=== PATIENT | female | born 1960 | race Caucasian/White ===

== ENCOUNTER → 2018-11-23 | Outpatient (CLI) | payer BC ==
--- NOTE | 2018-11-25 16:10 | SLEEPHOME ---
DATE OF PROCEDURE: 11/23/2018 ORDERED BY: DRAKE Grossman Diagnostic home sleep testing was performed due to concern for the obstructive sleep apnea syndrome in this patient with a history of excessive somnolence, morning headaches and nonrestorative sleep. For testing a nocturnal T3 respiratory monitoring device was used. Continuous record was made of pulse, oxygen saturation, airflow, chest, abdominal strain and body position. 9 hours and 59 minutes of data were reviewed. There were 5 hours and 38 minutes marked as time in bed. During the interval marked time in bed, there were 73 respiratory events identified of 10 seconds in duration or greater for a respiratory event index of 12.9. The events were obstructive. Baseline pulse rate 78, pulse rate ranged 61-99. Baseline saturation 93%, saturations fell to 82%. Testing was performed in both the supine and nonsupine positions. IMPRESSION: Abnormal home sleep testing with repetitive respiratory events and oxygen desaturations to 82% with a respiratory event index of 12.9 is consistent with the obstructive sleep apnea syndrome. RECOMMENDATIONS: The patient should be encouraged to undergo a formal sleep evaluation.
== END ==
LOC: M SLEEP HO 12:53
PROVIDERS: ATTEND Nurse Practitioner Adult Health
DX: R40.0 Somnolence (principal)

== ENCOUNTER → 2020-11-16 | Outpatient (REF) | payer BC ==
[2020-11-16 18:11] LABS: C REACTIVE PROTEIN QUANTITATIV 1.27 MG/DL (0.00-0.30); URIC ACID 5.3 MG/DL (2.6-6.0)
[2020-11-16 18:25] LABS: TOTAL 25(OH) VITAMIN D 30.2 NG/ML (30.0-100.0)
== END ==
LOC: M SFHCRHEU 11:31
PROVIDERS: ATTEND Internal Medicine
DX: M79.89 Other specified soft tissue disorders (principal); E55.9 Vitamin D deficiency, unspecified

== ENCOUNTER 2021-07-24 13:22 | Emergency (ER) | payer BC ==
[~2021-07-24] VITALS: Ht 157.5 cm; Wt 113.6 kg
[2021-07-24] MEDS ORDERED: SYNT100T (13:30)
[2021-07-24] MEDS ORDERED: HYDR12.55 (13:30)
[2021-07-24] MEDS ORDERED: LOSA25TA13 (13:30)
[2021-07-24 16:20] VITALS: BP 160/90
== END 2021-07-24 16:18 | disposition home or self-care (01) ==
LOC: M ED 13:22
DX: S89.92XA Unspecified injury of left lower leg, initial encounter (principal); X50.9XXA Other and unspecified overexertion or strenuous movements or postures, initial encounter; Y92.018 Other place in single-family (private) house as the place of occurrence of the external cause; I10 Essential (primary) hypertension; E03.9 Hypothyroidism, unspecified; E66.9 Obesity, unspecified; G47.33 Obstructive sleep apnea (adult) (pediatric); M19.90 Unspecified osteoarthritis, unspecified site; Z79.899 Other long term (current) drug therapy; Z79.890 Hormone replacement therapy; Z88.1 Allergy status to other antibiotic agents; Z88.2 Allergy status to sulfonamides; Z88.5 Allergy status to narcotic agent

== ENCOUNTER 2024-05-26 16:05 | Emergency (ER) | payer BC ==
[~2024-05-26 16:05] MED LIST: HYDR12.55; LOSA25TA13; SYNT100T
[2024-05-26 17:47] LABS: BASO # 0.1 10^3/uL (0.0-0.2); BASO % 0.5 % (0.0-1.0); EOS # 0.1 10^3/uL (0.0-0.5); EOS % 1.3 % (0.0-3.0); HEMATOCRIT 39.5 % (36.0-47.0); HEMOGLOBIN 13.5 g/dl (12.0-15.5); LYMPH # 2.7 10^3/uL (1.5-5.0); MEAN CORPUSCULAR HEMOGLOBIN 29.3 pg (27.0-33.0); MEAN CORPUSCULAR HGB CONC 34.2 g/dl (32.0-36.5); MEAN CORPUSCULAR VOLUME 85.7 fl (80.0-96.0); MONO # 0.6 10^3/uL (0.0-0.8); MONO % 5.7 % (2.0-8.0); NEUTROPHILS # 6.2 10^3/uL (1.5-8.5); NEUTROPHILS % 64.2 % (36.0-66.0); PLATELET COUNT, AUTOMATED 388 10^3/uL (150-450); RED BLOOD COUNT 4.61 10^6/uL (4.00-5.40); WHITE BLOOD COUNT 9.6 10^3/uL (4.0-10.0)
[2024-05-26 18:09] LABS: LIPASE 30 U/L (12-53)
[2024-05-26 18:11] LABS: ALBUMIN 3.9 G/DL (3.2-5.2); ALKALINE PHOSPHATASE 104 U/L (35-104); ALT/SGPT 25 U/L (7.0-40); AST/SGOT 15 U/L (<34); BILIRUBIN,DIRECT 0.2 MG/DL (<0.4); BILIRUBIN,TOTAL 0.6 MG/DL (0.3-1.2); BLOOD UREA NITROGEN 14 MG/DL (9-23); CALCIUM LEVEL 9.4 MG/DL (8.3-10.6); CARBON DIOXIDE LEVEL 28 MMOL/L (20-31); CHLORIDE LEVEL 103 MMOL/L (98-107); CREATININE FOR GFR 0.61 MG/DL (0.55-1.30); GLOMERULAR FILTRATION RATE > 60.0 (>45); GLUCOSE, FASTING 103 MG/DL (74-106); POTASSIUM SERUM 3.7 MMOL/L (3.5-5.1); SODIUM LEVEL 140 MMOL/L (136-145); TOTAL PROTEIN 7.3 G/DL (5.7-8.2)
[2024-05-26 18:39] VITALS: TEMP 97.8
[2024-05-26 18:50] LABS: RSV AMPLIFICATION NEGATIVE (NEGATIVE)
[2024-05-26] MEDS: KETOROLAC 30 MG/ML 1ML VIAL IM ONE (21:15)
[2024-05-26 21:39] VITALS: BP 151/80
[2024-05-26] MEDS: MAALOX 30 ML SUSP *UDC PO ONE (21:48)
[2024-05-26] MEDS: methocarbamoL 750 MG TAB PO ONE (21:48)
[2024-05-26 22:00] LABS: KETONE, URINE AUTO RFX NEGATIVE (NEGATIVE); LEUKOCYTE ESTERASE UR AUTO RFX NEGATIVE (NEGATIVE); NITRITE, URINE AUTO RFX NEGATIVE (NEGATIVE); RBC, URINE AUTO RFX 0 /HPF (0-3); SQUAM EPITHELIAL CELL UR AURFX 1 /HPF (0-6); WBC, URINE AUTO RFX 0 /HPF (0-3)
[2024-05-26 22:14] LABS: CK-MB VALUE MASS < 1.0 NG/ML (<3.6)
[2024-05-26 22:15] LABS: CPK CREATINE PHOSPHOKINASE 40 U/L (34-145)
[2024-05-26] MEDS ORDERED: NAPR-885 PO (23:59)
[2024-05-26] MEDS ORDERED: MIRA3350 PO (23:59)
[2024-05-26] MEDS ORDERED: METH-1164 PO (23:59)
[2024-05-26] MEDS ORDERED: MM S100C PO (23:59)
[2024-05-27] VITALS: O2SAT 97
== END 2024-05-27 00:12 | disposition home or self-care (01) ==
LOC: M ED 16:05
DX: K59.00 Constipation, unspecified (principal); M50.923 Unspecified cervical disc disorder at C6-C7 level; I45.81 Long QT syndrome; I10 Essential (primary) hypertension; G47.33 Obstructive sleep apnea (adult) (pediatric); E03.9 Hypothyroidism, unspecified; F10.10 Alcohol abuse, uncomplicated; Z88.2 Allergy status to sulfonamides; Z88.5 Allergy status to narcotic agent; Z79.899 Other long term (current) drug therapy
CPT/HCPCS: 72052; 73010; 74018; 80048; 80076; 81001; 82550; 82553; 83690; 84484; 85025; 87631; 93005; 96372; 99284; J1885